=== PATIENT | female | born 1985 | race African-American/Black ===

== ENCOUNTER 2019-04-14 20:09 | Emergency (ER) | payer SELFPAY ==
[2019-04-14 20:18] VITALS: BP 133/82; PULSE 63; TEMP 98.2; BMI 27.6
--- NOTE | 2019-04-14 20:18 | PDOC ---
Rapid Medical Evaluation Chief Complaint: Abscess Boil Time Seen by Provider: 04/14/19 20:15 Medical Evaluation: Allergies Allergy/AdvReac Type Severity Reaction Status Date / Time No Known Allergies Allergy Verified 12/14/16 21:39 04/14/19 20:16 I have performed a brief in-person evaluation of this patient. The patient presents with a chief complaint of: swelling and pain to old cyst ~ 2 days ago noted discolored /no drainage/ no fevers Pertinent physical exam findings: + pain/ fluctuant mass to right lower chin I have ordered the following: nothing The patient will proceed to the ED for further evaluation. 04/14/19 20:18 Discharge Disposition - Diagnosis Abscess - Referrals - Patient Instructions - Post Discharge Activity
--- NOTE | 2019-04-14 20:41 | PDOC ---
History of Present Illness - General Chief Complaint: Abscess Boil Stated Complaint: PAIN IN FACE Time Seen by Provider: 04/14/19 20:15 - History of Present Illness Initial Comments: 04/14/19 20:38 34-year-old female without comorbidities presents for a painful area on her right chin which is been present for 2 years increasing in severity over the last few days. Past History - Past Medical History Allergies/Adverse Reactions: Allergies Allergy/AdvReac Type Severity Reaction Status Date / Time No Known Allergies Allergy Verified 04/14/19 20:18 Home Medications: Ambulatory Orders Cephalexin [Keflex] 500 mg PO QID #40 capsule 04/14/19 Sulfamethoxazole/Trimethoprim [Bactrim Ds -] 1 tab PO BID #14 tablet 04/14/19 COPD: No - Suicide/Smoking/Psychosocial Hx Smoking History: Never smoked Have you smoked in the past 12 months: No Hx Alcohol Use: No Drug/Substance Use Hx: No Substance Use Type: None Review of Systems - Review of Systems Integumentary: Yes: See HPI *Physical Exam - Vital Signs Last Vital Signs Temp Pulse Resp BP Pulse Ox 98.2 F 63 18 133/82 98 04/14/19 20:15 04/14/19 20:15 04/14/19 20:15 04/14/19 20:15 04/14/19 20:15 - Physical Exam Comments: 04/14/19 20:39 Is a tender firm about 1 cm circumferential area on the right side of her chin with normal overlying skin color and temperature Medical Decision Making - Medical Decision Making 04/14/19 20:39 Is most likely a sebaceous cyst. I will put her on Bactrim and Keflex and have her follow-up with dermatology. *DC/Admit/Observation/Transfer Diagnosis at time of Disposition: Sebaceous cyst Diagnosis at time of Disposition: (Ruled Out): Abscess - Discharge Dispostion Disposition: HOME Condition at time of disposition: Stable Decision to Admit order: No - Prescriptions Prescriptions: Cephalexin [Keflex] 500 mg PO QID #40 capsule Sulfamethoxazole/Trimethoprim [Bactrim Ds -] 1 tab PO BID #14 tablet - Referrals Referrals: Mamta Lobato MD [Staff Physician] - - Patient Instructions Additional Instructions: Please take the antibiotics as directed area warm compresses 5-6 times a day will help soften up the growth on her chin. Return to the emergency room for worsening symptoms. Follow-up with dermatology in 1-2 days for further evaluation and treatment options. - Post Discharge Activity
== END 2019-04-14 20:45 | disposition home or self-care (01) ==
LOC: JERFT 20:09
DX: L72.3 Sebaceous cyst (principal)
CPT/HCPCS: 99281-25

== ENCOUNTER 2019-08-15 14:57 | Emergency (ER) | payer SELFPAY ==
[2019-08-15 15:04] VITALS: BP 119/65; PULSE 71; TEMP 97.8; BMI 27.5
--- NOTE | 2019-08-15 16:01 | PDOC ---
History of Present Illness - General Chief Complaint: Rash Stated Complaint: RASH Time Seen by Provider: 08/15/19 15:06 History Source: Patient - History of Present Illness Timing/Duration: reports: other Location: reports: extremities, torso Past History - Past Medical History Allergies/Adverse Reactions: Allergies Allergy/AdvReac Type Severity Reaction Status Date / Time No Known Allergies Allergy Verified 08/15/19 15:00 Home Medications: Ambulatory Orders Clotrimazole [Alevazol] 56.7 gm TP BID #1 oint...g. 08/15/19 COPD: No - Psycho Social/Smoking Cessation Hx Smoking History: Never smoked Have you smoked in the past 12 months: No Hx Alcohol Use: No Drug/Substance Use Hx: No Substance Use Type: None Review of Systems - Review of Systems Constitutional: No: Chills, Fever Integumentary: Yes: Pruritus, Rash *Physical Exam - Vital Signs Last Vital Signs Temp Pulse Resp BP Pulse Ox 97.8 F 71 18 119/65 100 08/15/19 15:03 08/15/19 15:03 08/15/19 15:03 08/15/19 15:03 08/15/19 15:03 - Physical Exam General Appearance: Yes: Appropriately Dressed. No: Apparent Distress HEENT: positive: Normal Voice Neck: positive: Supple Respiratory/Chest: negative: Respiratory Distress Integumentary: positive: Dry, Warm, Other (oval erythematous scaly patches to L thigh, buttocks and inframammry folds) Neurologic: positive: Fully Oriented, Alert, Normal Mood/Affect Medical Decision Making - Medical Decision Making 08/15/19 15:53 34-year-old female, denies any past medical history, here with pruritic rash. Patient states 2 weeks ago developed a rash to her L thigh and since then has noticed similar rash to torso and buttocks and b/l inframammary region. No sick contacts or other obvious inciting factors. No history of similar rash. Pt also requesting STD screening, no sxs at this time. see exam ?Tinea corporis -Dc w/ topical azole -Derm f/u as needed Discharge - Discharge Information Problems reviewed: Yes Clinical Impression/Diagnosis: Tinea corporis Disposition: HOME - Additional Discharge Information Prescriptions: Clotrimazole [Alevazol] 56.7 gm TP BID #1 oint...g. - Follow up/Referral Referrals: Mamta Lobato MD [Staff Physician] - - Patient Discharge Instructions Patient Printed Discharge Instructions: DI for Tinea Corporis Additional Instructions: Apply ointment as directed for 4 weeks If no improvement, please make appt to see Dr Lobato of Dermatology - Post Discharge Activity
[2019-08-15 18:05] LABS: EPI CELLS 2.4 /HPF (0-5/HPF); HYALINE CASTS 0 /lpf (0-8); PH,URINE 6.5 (5.0-8.0); URINE APPEARANCE CLEAR; URINE BACTERIA 109.1 /hpf (NEGATIVE); URINE BILIRUBIN NEGATIVE (NEGATIVE); URINE COLOR YELLOW; URINE GLUCOSE (UA) NEGATIVE (NEGATIVE); URINE KETONE NEGATIVE (NEGATIVE); URINE LEUK ESTERASE 2+ (NEGATIVE); URINE NITRITE NEGATIVE (NEGATIVE); URINE PROTEIN NEGATIVE (NEGATIVE); URINE RBC 4 /hpf (0-4); URINE UROBILINOGEN 0.2 mg/dL (0.2-1.0); URINE WBC 7 /hpf (0-5)
== END 2019-08-15 15:58 | disposition home or self-care (01) ==
LOC: JERFT 14:57
DX: B35.4 Tinea corporis (principal)
CPT/HCPCS: 36415; 81003; 84703; 87491; 87591; 99281-25